=== PATIENT | female | born 1955 | race Caucasian/White ===

== ENCOUNTER 2016-11-18 11:03 | Emergency (ER) | payer MEDICARE ==
[2016-09-13 15:28] VITALS: BMI 15.6
[~2016-11-18 11:03] MED LIST: LEVOTHYROXINE50 MCG PO; LISINOPRIL-HCTZ1 TA2 PO; LUNESTA3 MG PO; METHADONE 10 MG10 MG PO; MORPHINE IMMEDI30 M1 PO; PAROXETINE HCL10 MG PO; SONATA10 MG PO; ZANAFLEX4 MG PO
[2016-11-18 11:33] LABS: BASOPHILS 0.2 % (0.0-2.0); EOSINOPHILS 1.5 % (0-7); HEMATOCRIT 40.7 % (36.0-48.0); HEMOGLOBIN 13.2 g/dL (12-16); LYMPHOCYTES 28.8 % (15-50); MCH 31.1 pg (26.0-34.0); MCHC 32.4 g/dL (31.0-37.0); MCV 95.8 fL (80.0-100.0); MEAN PLATELET VOLUME 9.9 fL (7.4-10.4); MONOCYTES 10.4 % (2-11); NEUTROPHILS 59.1 % (40-80); PLATELET COUNT 124 10x3/uL (130-400); RBC 4.25 10x6/uL (4.00-5.40); RDW 11.6 % (11.5-14.5); WBC 5.2 10x3/uL (4.8-10.8)
[2016-11-18 11:47] LABS: ALBUMIN 3.3 g/dL (3.4-5.0); ALKALINE PHOSPHATASE 76 U/L (46-116); ALT (SGPT) 27 U/L (10-68); BILIRUBIN - TOTAL 0.61 mg/dL (0.2-1.3); CALCIUM 9.5 mg/dL (8.5-10.1); CHLORIDE - SERUM 98 mmol/L (98-107); CREATININE - SERUM 0.6 mg/dL (0.6-1.3); POTASSIUM - SERUM 4.6 mmol/L (3.5-5.1); PROTEIN - SERUM 6.5 g/dL (6.4-8.2); SODIUM 141 mmol/L (136-145); UREA NITROGEN 14 mg/dL (7-18); eGFR NON AFRICAN AMERICAN > 90 mL/min (90-120)
[2016-11-18 11:53] LABS: CALC OSMOLALITY 283 mosm/kg (275-300); GLUCOSE 135 mg/dL (74-106)
[2016-11-18 11:55] LABS: CARBON DIOXIDE 45.2 mmol/L (21.0-32.0)
[2016-11-18 12:23] LABS: PRO BNP 143 pg/mL (0-125)
[2016-11-18 12:24] LABS: CREATINE KINASE 40 UL (21-215); TROPONIN-I < 0.017 ng/mL (0.000-0.060)
[2016-11-18 12:42] LABS: APPEARANCE HAZY (CLEAR); BACTERIA FEW /hpf (NONE SEEN); BILIRUBIN NEGATIVE (NEGATIVE); COLOR YELLOW (YELLOW); EPITHELIAL CELLS 0-5 /hpf (0-5); GLUCOSE NEGATIVE (NEGATIVE); KETONE NEGATIVE (NEGATIVE); LEUKOCYTE ESTERASE 2+ (NEGATIVE); MUCUS <1+ /lpf (NONE SEEN); NITRITE NEGATIVE (NEGATIVE); PROTEIN NEGATIVE (NEGATIVE); RED CELLS - URINE 0-5 /hpf (0-5)
== END 2016-11-18 13:10 | disposition home or self-care (01) ==
LOC: D.ER 11:03
PROVIDERS: Emergency Medicine
DX: R53.1 Weakness (principal)

== ENCOUNTER 2016-11-20 13:47 | Emergency (ER) | payer MEDICARE ==
[2016-09-13 15:28] VITALS: BMI 15.6
[2016-11-20 15:00] LABS: BASOPHILS 0.1 % (0.0-2.0); EOSINOPHILS 0 % (0-7); HEMATOCRIT 42.6 % (36.0-48.0); HEMOGLOBIN 14.1 g/dL (12-16); IMMATURE GRANULOCYTES 0.1 % (0-5); LYMPHOCYTES 3.9 % (15-50); MCH 31.3 pg (26.0-34.0); MCHC 33.1 g/dL (31.0-37.0); MCV 94.5 fL (80.0-100.0); MEAN PLATELET VOLUME 9.7 fL (7.4-10.4); MONOCYTES 3.9 % (2-11); PLATELET COUNT 135 10x3/uL (130-400); RBC 4.51 10x6/uL (4.00-5.40); RDW 11.6 % (11.5-14.5); WBC 8.9 10x3/uL (4.8-10.8)
[2016-11-20 15:16] LABS: ALBUMIN 3.9 g/dL (3.4-5.0); ALKALINE PHOSPHATASE 88 U/L (46-116); ALT (SGPT) 21 U/L (10-68); AMYLASE - SERUM 110 U/L (25-115); BILIRUBIN - TOTAL 0.77 mg/dL (0.2-1.3); CALC OSMOLALITY 288 mosm/kg (275-300); CALCIUM 9.8 mg/dL (8.5-10.1); CHLORIDE - SERUM 97 mmol/L (98-107); CREATININE - SERUM 0.8 mg/dL (0.6-1.3); GLUCOSE 167 mg/dL (74-106); LIPASE 348 U/L (73-393); PROTEIN - SERUM 7.8 g/dL (6.4-8.2); SODIUM 142 mmol/L (136-145); UREA NITROGEN 18 mg/dL (7-18); eGFR NON AFRICAN AMERICAN 77 mL/min (90-120)
[2016-11-20 15:19] LABS: POTASSIUM - SERUM 2.8 mmol/L (3.5-5.1)
[2016-11-20 15:32] LABS: APPEARANCE CLEAR (CLEAR); BILIRUBIN NEGATIVE (NEGATIVE); COLOR YELLOW (YELLOW); GLUCOSE NEGATIVE (NEGATIVE); KETONE NEGATIVE (NEGATIVE); LEUKOCYTE ESTERASE TRACE (NEGATIVE); NITRITE NEGATIVE (NEGATIVE); PROTEIN TRACE mg/dL (NEGATIVE); SPECIFIC GRAVITY 1.025 (1.005-1.020); UROBILINOGEN NORMAL (NORMAL)
[2016-11-20 15:33] LABS: WHITE CELLS - URINE 0-5 /hpf (0-5)
[2016-11-20 15:34] LABS: BACTERIA FEW /hpf (NONE SEEN); YEAST <1+ /hpf (NONE SEEN)
== END 2016-11-20 18:30 | disposition home or self-care (01) ==
LOC: D.ER 13:47
PROVIDERS: Emergency Medicine
DX: R11.10 Vomiting, unspecified (principal)

== ENCOUNTER → 2017-03-03 12:58 | Outpatient (CLI) | payer MEDICARE ==
[2016-09-13 15:28] VITALS: BMI 15.6
== END | disposition home or self-care (01) ==
LOC: D.RT 12:58
DX: J96.11 Chronic respiratory failure with hypoxia (principal); Z01.818 Encounter for other preprocedural examination

== ENCOUNTER 2017-03-14 11:13 | Inpatient (IN) | payer MEDICARE ==
[~2017-03-14] VITALS: Ht 152.4 cm; Wt 49.4 kg
[2017-03-14 12:59] LABS: BASOPHILS 0 % (0-2); EOSINOPHILS 0.2 % (0-7); HEMATOCRIT 38.7 % (36.0-48.0); HEMOGLOBIN 12.7 g/dL (12-16); LYMPHOCYTES 14.2 % (15-50); MCH 30.3 pg (26.0-34.0); MCHC 32.8 g/dL (31.0-37.0); MCV 92.4 fL (80.0-100.0); MEAN PLATELET VOLUME 9.7 fL (7.4-10.4); MONOCYTES 6.5 % (2-11); NEUTROPHILS 79.1 % (40-80); PLATELET COUNT 114 10x3/uL (130-400); RBC 4.19 10x6/uL (4.00-5.40); RDW 11.9 % (11.5-14.5); WBC 5.1 10x3/uL (4.8-10.8)
[2017-03-14 13:16] LABS: APTT 26.9 SECONDS (22.8-39.4); INR 0.99 (0.85-1.17); PROTIME 12.9 SECONDS (11.6-15.0)
[2017-03-14 13:30] LABS: ALBUMIN 3.6 g/dL (3.4-5.0); ALKALINE PHOSPHATASE 80 U/L (46-116); ALT (SGPT) 23 U/L (10-68); BILIRUBIN - TOTAL 0.31 mg/dL (0.2-1.3); CALCIUM 9.3 mg/dL (8.5-10.1); CHLORIDE - SERUM 100 mmol/L (98-107); CREATININE - SERUM 0.5 mg/dL (0.6-1.3); POTASSIUM - SERUM 4.1 mmol/L (3.5-5.1); PROTEIN - SERUM 7.1 g/dL (6.4-8.2); SODIUM 141 mmol/L (136-145); UREA NITROGEN 17 mg/dL (7-18); eGFR NON AFRICAN AMERICAN > 90 mL/min (90-120)
[2017-03-14 13:32] LABS: CALC OSMOLALITY 282 mosm/kg (275-300); GLUCOSE 92 mg/dL (74-106)
[2017-03-14 13:33] LABS: CARBON DIOXIDE 45.8 mmol/L (21.0-32.0)
--- NOTE | 2017-03-14 18:41 | NUR ---
PT AOX4 RESP EVEN AND NONLABORED PT C/O N/V AT THIS TIME. IV TO LEFT FOREARM PATENT AND INTACT. SRX2 BED AT LOWEST SETTING CALL LIGHT WITHIN REACH. WILL CONTINUE TO MONITOR
[2017-03-14 18:50] VITALS: BP 123/91
[2017-03-14 19:00] VITALS: BP 127/96
--- NOTE | 2017-03-14 19:59 | NUR ---
RECIEVED PT LYING IN BED, ASSESSMENT COMPLETED, C/O ABD PAIN 10/10 WITH NAUSEA, TREATED WITH PRN MORPHINE AND ZOFRAN PER DEC, VIRA WELL, SR'S UP, NC IN PLACE, ALARM ON, CL IN REACH, WILL MONITOR
--- NOTE | 2017-03-14 21:26 | NUR ---
PT UP TO RESTROOM WITH NO DISTRESS NOTED, SCHEDULED METHADONE GIVEN ALONG WITH PRN LUNESTA PER PT REQUEST FOR SLEEP AFTER PT RETURNED TO BED, DENIES FURTHER NEEDS, SR'S UP, ALARM ON, CL IN REACH
--- NOTE | 2017-03-15 01:54 | NUR ---
PRN MORPHINE AND ZOFRAN GIVEN PER DEC FOR C/O CARRANZA 07/10 WITH NAUSEA, UP TO RESTROOM, VIRA WELL, DENIES FURTHER NEEDS, SR'S UP, ALARM ON, CL IN REACH
[2017-03-15 02:04] VITALS: BP 123/91; BMI 21.3
[2017-03-15] MEDS ORDERED: REMERON30 MG PO (02:15)
[2017-03-15] MEDS ORDERED: LORAZEPAM1 MG/0.5 M SL (02:15)
[2017-03-15] MEDS ORDERED: MORPHINE SUL20 MG/ML PO (02:16)
[2017-03-15] MEDS ORDERED: GLYCOLAX527 GM PO (02:16)
[2017-03-15] MEDS ORDERED: AMBIEN10 MG PO (02:17)
[2017-03-15] MEDS ORDERED: IPRAT-ALBUT 0.5-3 ML UPD (02:17)
[2017-03-15 04:00] VITALS: BP 131/46
--- NOTE | 2017-03-15 05:58 | NUR ---
PRN MORPHINE AND ZOFRAN GIVEN FOR C/O ABD PAIN 06/09 WITH NAUSEA ALONG WITH SCHEDULED SYNTHROID, VIRA WELL, DENIES OTHER NEEDS, SR'S UP, CL IN REACH
[2017-03-15 08:30] VITALS: BP 136/101
--- NOTE | 2017-03-15 08:30 | NUR ---
SCHEDULED MEDICATIONS ADMINISTERED AT THIS TIME WITHOUT DIFFICULTY. PT C/O NAUSEA WITHOUT EMESIS. ASSESSMENT PERFORMED PER FLOWSHEET. SCD'S APPLIED TO BLE. CALL LIGHT IN REACH, BED ALARM ON AND SRX2 WITH BED IN LOWEST POSITION AND WHEELS LOCKED. WILL CONTINUE WITH PLAN OF CARE.
--- NOTE | 2017-03-15 09:59 | NUR ---
PRN MORPHINE AND ZOFRAN ADMINISTERED AT THIS TIME FOR PAIN 8/10 ABDOMINALLY AND NAUSEA. IV TO LEFT AC PATENT WITH BLOOD RETURN PRESENT. CALL LIGHT IN REACH, WILL CONTINUE WITH PLAN OF CARE.
[2017-03-15 12:18] VITALS: BP 114/86
--- NOTE | 2017-03-15 12:45 | NUR ---
PRN PHENERGAN SUPPOSITORY ADMINISTERED FOR PERSISTENT NAUSEA WITHOUT EMESIS. FATHER AT BEDSIDE. CALL LIGHT IN REACH, WILL CONTINUE WITH PLAN OF CARE.
[2017-03-15 13:53] VITALS: Ht 152.4 cm; Wt 49.4 kg
--- NOTE | 2017-03-15 14:50 | NUR ---
PRN MORPHINE AND ZOFRAN ADMINISTERED AT THIS TIME FOR PAIN AND NAUSEA AT THIS TIME. PAIN 8/10 ABDOMINALLY. COOL RAG PROVIDED TO PT FOR HER FOREHEAD. DENIES FURTHER NEEDS. CALL LIGHT IN REACH. WILL CONTINUE WITH PLAN OF CARE.
--- NOTE | 2017-03-15 15:23 | NUR ---
Patient Name: MILI VALVERDE Admission Status: ER Accout number: [id number] Admission Date: 03-15-2017 : 1955 Admission Diagnosis: Attending: ONDINA Current LOS: 1 Anticipated DC Date: 03-18-2017 Planned Disposition: Home with Home Health Primary Insurance: MEDICARE A & B Discharge Planning Comments: CM MET WITH PATIENT REGARDING D/C NEEDS AND PLANS. PATIENT STATED SHE LIVES WITH HER SPOUSE (SHERRIE) AND THERE DAUGHTER HER CHILDREN. PATIENT STATED THERE ARE 2 STEPS W/O RAILS TO ENTER HOME AND NO STAIRS INSIDE. PATIENT STATED HER PCP IS DR. COPELAND AND PHARMACY IS [facility]. PATIENT HAS [facility] THAT COMES IN 5 DAYS A WEEK FOR 3HRS A DAY. PATIENT HAS OXYGEN (1.5 LITER) NEBULIZER, PORT O2, SHOWER CHAIR, BS COMMODE, AND WALKER AT HOME. PATIENT HAS SIGNED THE LU FORM WITH [facility] IF NEEDED. CM WILL CONTINUE TO FOLLOW PATIENT WITH D/C NEEDS AND PLANS. PCP DR. DINORAH COHEN ON [facility]- [phone] SHERRIE (SPOUSE) [phone] Shipfitter: Sophie Lewis Is the patient Alert and Oriented? Yes 0 * How many steps to enter\exit or inside your home? 2 W/O RAIL 0 * PCP DR. COPELAND 0 * Pharmacy [facility] 0 * Preadmission Environment Home with Family 0 * ADLs Partial Dependent 0 * Partial ADLs (Assistance needed) Bathing Dressing Medication Management 0 * Equipment Bedside Commode Nebulizer Oxygen Shower Chair Walker 0 * Other Equipment PORTABLE O2 0 * List name and contact numbers for known caregivers / representatives who currently or will assist patient after discharge: SHERRIE (SPOUSE) [phone] 0 * Community resources currently utilized None 0 * Additional services required to return to the preadmission environment? Yes 0 * Can the patient safely return to the preadmission environment? Yes 0 * Has this patient been hospitalized within the prior 30 days at any hospital? No 0 Grand Total: 0
[2017-03-15 15:58] VITALS: BP 130/89
--- NOTE | 2017-03-15 16:30 | NUR ---
SLEEPING AT THIS TIME. RESPIRATIONS EVEN AND NON LABORED. WILL WAIT FOR PT TO WAKE UP TO ADMINISTER SCHEDULED METHADONE THIS IS THE FIRST TIME SHE HAS SLEPT ALL DAY.
--- NOTE | 2017-03-15 16:59 | NUR ---
SCHEDULED METHADONE ADMINISTERED AT THIS TIME. TAKEN WITHOUT DIFFICULTY. REQUESTING JELLO AT THIS TIME. DENIES FURTHER NEEDS. CALL LIGHT IN REACH. WILL CONTINUE WITH PLAN OF CARE.
[2017-03-15 19:00] VITALS: BP 134/89
--- NOTE | 2017-03-15 19:20 | NUR ---
ASSESSMENT COMPLETED, HOB ELEVATED, PULMACARE INFUSING TO PEG, SR'S UP, SCD'S ON, SPOUSE IN ROOM, CL IN REACH, WILL MONITOR
--- NOTE | 2017-03-15 20:51 | NUR ---
PRN ZOFRAN GIVEN FOR C/O NAUSEA ALONG WITH ROUTINE MEDS, VIRA WELL, CL IN REACH
--- NOTE | 2017-03-15 22:11 | NUR ---
PRN LUNESTA GIVEN PER REQUEST FOR SLEEP, VIRA WELL, CL IN REACH
[2017-03-16 04:00] VITALS: BP 102/77
[2017-03-16 08:14] VITALS: BP 96/67
--- NOTE | 2017-03-16 09:26 | NUR ---
SCHEDULED MEDICATIONS ADMINISTERED THIS TIME WITHOUT DIFFICULTY. PRN PHENERGAN SUPPOSITORY ADMINISTERED AT THIS TIME FOR COMPLAINTS OF NAUSEA. ASSESSMENT PERFORMED PER FLOWSHEET. PT IS SELF AMBULATORY AND CALL LIGHT IN REACH. WILL CONTINUE WITH PLAN OF CARE.
--- NOTE | 2017-03-16 11:28 | NUR ---
PRN MORPHINE AND ZOFRAN ADMINISTERED AT THIS TIME. PAIN 8/10 AND PT COMPLAINS OF NAUSEA WITHOUT VOMITING. PT DENIES FURTHER NEEDS AT THIS TIME. IV TO LEFT AC PATENT WITH NO S/S OF INFILTRATION.
[2017-03-16 11:50] VITALS: BP 116/80
--- NOTE | 2017-03-16 13:14 | NUR ---
UP TO CHAIR AT THIS TIME. IV TO LEFT AC D/C WITH CATH TIP INTACT.
--- NOTE | 2017-03-16 16:20 | NUR ---
DISCHARGE PAPERWORK REVIEWED AT THIS TIME. SON AT BEDSIDE TO TRANSPORT PT HOME.
== END 2017-03-16 16:20 | disposition home health service (06) | DRG 206 ==
LOC: D.ER 11:13 → OBSVTIME 17:53 → D.MS 17:53
PROVIDERS: Physician Assistant; ADMIT Family Medicine
DX: R09.02 Hypoxemia (principal); R51 Headache; K44.9 Diaphragmatic hernia without obstruction or gangrene; M41.9 Scoliosis, unspecified; F32.9 Major depressive disorder, single episode, unspecified; F41.9 Anxiety disorder, unspecified

== ENCOUNTER 2017-03-22 01:40 | Emergency (ER) | payer MEDICARE ==
[2017-03-15 13:53] VITALS: BMI 21.2
[~2017-03-22 01:40] MED LIST changes: +AMBIEN10 MG PO; +GLYCOLAX527 GM PO; +IPRAT-ALBUT 0.5-3 ML UPD; +LORAZEPAM1 MG/0.5 M SL; +MORPHINE SUL20 MG/ML PO; +REMERON30 MG PO
[2017-03-22 03:07] LABS: BASOPHILS 0.2 % (0-2); EOSINOPHILS 0.4 % (0-7); HEMATOCRIT 39.6 % (36.0-48.0); HEMOGLOBIN 13.3 g/dL (12-16); IMMATURE GRANULOCYTES 0.1 % (0-5); LYMPHOCYTES 11.7 % (15-50); MCH 30.1 pg (26.0-34.0); MCHC 33.6 g/dL (31.0-37.0); MCV 89.6 fL (80.0-100.0); MEAN PLATELET VOLUME 9.9 fL (7.4-10.4); NEUTROPHILS 81.6 % (40-80); RBC 4.42 10x6/uL (4.00-5.40); RDW 11.8 % (11.5-14.5); WBC 8.3 10x3/uL (4.8-10.8)
[2017-03-22 03:12] LABS: PLATELET COUNT 137 10x3/uL (130-400)
[2017-03-22 03:22] LABS: CALCIUM 9.9 mg/dL (8.5-10.1); CHLORIDE - SERUM 99 mmol/L (98-107); CREATININE - SERUM 0.6 mg/dL (0.6-1.3); POTASSIUM - SERUM 3.3 mmol/L (3.5-5.1); SODIUM 142 mmol/L (136-145); UREA NITROGEN 19 mg/dL (7-18); eGFR NON AFRICAN AMERICAN > 90 mL/min (90-120)
[2017-03-22 03:26] LABS: CALC OSMOLALITY 290 mosm/kg (275-300); GLUCOSE 210 mg/dL (74-106)
[2017-03-22 03:27] LABS: CARBON DIOXIDE 42.2 mmol/L (21.0-32.0)
[2017-03-22 08:59] LABS: AMORPHOUS SEDIMENT >1+ /lpf (NONE SEEN); APPEARANCE HAZY (CLEAR); BACTERIA FEW /hpf (NONE SEEN); BILIRUBIN NEGATIVE (NEGATIVE); COLOR YELLOW (YELLOW); EPITHELIAL CELLS 0-5 /hpf (0-5); GLUCOSE 50 mg/dL (NEGATIVE); GRANULAR CAST RARE /lpf (NONE SEEN); KETONE SMALL mg/dL (NEGATIVE); LEUKOCYTE ESTERASE NEGATIVE (NEGATIVE); MUCUS <1+ /lpf (NONE SEEN); NITRITE NEGATIVE (NEGATIVE); PROTEIN TRACE mg/dL (NEGATIVE); SPECIFIC GRAVITY 1.015 (1.005-1.020); UROBILINOGEN NORMAL (NORMAL); WHITE CELLS - URINE RARE /hpf (0-5)
== END 2017-03-22 11:10 | disposition home or self-care (01) ==
LOC: D.ER 01:40
PROVIDERS: Family Medicine
DX: R11.10 Vomiting, unspecified (principal); R10.9 Unspecified abdominal pain; I10 Essential (primary) hypertension

== ENCOUNTER 2017-08-25 15:40 | Inpatient (IN) | payer MEDICARE ==
[2017-08-25] MEDS ORDERED: PHENERGAN12.5 MG RC (17:10)
--- NOTE | 2017-08-25 18:45 | NUR ---
PATIENT DURON STARTED AT THIS TIME AND SPECIMAN SENT TO LAB ORDERED. PATIENT TOLERATED WITH SMALL AMOUNT OF PAIN. IV STARTED IN LEFT FA. 20 G. X 1 STICK. NO COMPLAINTS AT THIS TIME. CALL LIGHT WITHIN REACH.
--- NOTE | 2017-08-25 19:00 | NUR ---
REPORT RECEIVED AND CARE OF PT ASSUMED. PT LYING IN SEMI KEYES'S POSITION WATCHING TV. IV IN LEFT FA PATENT WITH NS INFUSING AT 100 ML / HR. DURON CATHETER DRAINING TO GRAVITY WITH YELLOW URINE IN COLLECTION BAG. WILL MONITOR FOR NEEDS.
[2017-08-25 20:00] VITALS: BP 138/97
[2017-08-25 20:12] VITALS: BP 140/96; BMI 19.5
[2017-08-25 20:36] LABS: APPEARANCE HAZY (CLEAR); BILIRUBIN NEGATIVE (NEGATIVE); COLOR DK YELLOW (YELLOW); GLUCOSE NEGATIVE (NEGATIVE); KETONE LARGE mg/dL (NEGATIVE); NITRITE NEGATIVE (NEGATIVE); PROTEIN TRACE mg/dL (NEGATIVE); UROBILINOGEN NORMAL (NORMAL)
[2017-08-25 20:40] LABS: BACTERIA FEW /hpf (NONE SEEN); RED CELLS - URINE 0-5 /hpf (0-5); WHITE CELLS - URINE 0-5 /hpf (0-5)
--- NOTE | 2017-08-25 21:07 | NUR ---
HS MEDICATIONS GIVEN TO INCLUDE LUNESTA AND MORPHINE PER PRN ORDER, PER PT REQUEST FOR PAIN AND SLEEP. WILL CONTINUE TO MONITOR FOR NEEDS.
[2017-08-26 04:00] VITALS: BP 113/84
[2017-08-26 06:16] LABS: BASOPHILS 0.1 % (0-2); EOSINOPHILS 0 % (0-7); HEMATOCRIT 40.3 % (36.0-48.0); HEMOGLOBIN 12.7 g/dL (12-16); IMMATURE GRANULOCYTES 0.2 % (0-5); MCHC 31.5 g/dL (31.0-37.0); MEAN PLATELET VOLUME 9.8 fL (7.4-10.4); MONOCYTES 7.3 % (2-11); NEUTROPHILS 87.4 % (40-80); RBC 4.24 10x6/uL (4.00-5.40); WBC 9.2 10x3/uL (4.8-10.8)
[2017-08-26 06:21] LABS: PLATELET COUNT 171 10x3/uL (130-400)
[2017-08-26 06:47] LABS: ALBUMIN 3.3 g/dL (3.4-5.0); ALKALINE PHOSPHATASE 65 U/L (46-116); ALT (SGPT) 24 U/L (10-68); BILIRUBIN - TOTAL 0.71 mg/dL (0.2-1.3); CALCIUM 8.4 mg/dL (8.5-10.1); CHLORIDE - SERUM 100 mmol/L (98-107); CREATININE - SERUM 0.5 mg/dL (0.6-1.3); POTASSIUM - SERUM 3.2 mmol/L (3.5-5.1); PROTEIN - SERUM 6.9 g/dL (6.4-8.2); SODIUM 144 mmol/L (136-145); UREA NITROGEN 36 mg/dL (7-18); eGFR NON AFRICAN AMERICAN > 90 mL/min (90-120)
[2017-08-26 06:59] LABS: CALC OSMOLALITY 296 mosm/kg (275-300); GLUCOSE 142 mg/dL (74-106)
--- NOTE | 2017-08-26 07:00 | NUR ---
REPORT RECIEVED ASSUMED CARE. PATIENT IN BED WITH IV INTACT. NO COMPLAINTS AT THIS TIME. CALL LIGHT WITHIN REACH.
[2017-08-26 07:02] LABS: CARBON DIOXIDE 42.8 mmol/L (21.0-32.0)
[2017-08-26 08:38] VITALS: BP 123/85
[2017-08-26 12:14] VITALS: BMI 19.5
[2017-08-26 13:01] VITALS: BP 112/75
--- NOTE | 2017-08-26 14:26 | NUR ---
SCD'S ON BILATERAL LE
--- NOTE | 2017-08-26 15:27 | NUR ---
PT REFUSED TX DUE TO NAUSEA
[2017-08-26 16:18] VITALS: BP 123/71
--- NOTE | 2017-08-26 18:45 | NUR ---
PATIENT IN BED WITH IV INTACT. ATE HALF A SHERBERT AND SOME JELLO. ZOFRAN GIVEN FOR NAUSEA. NO VOMITTING TODAY. DID HAVE 1 LG BM. DURON INTACT. FAMILY AT BEDSIDE. CALL LIGHT WITHIN REACH.
--- NOTE | 2017-08-26 19:15 | NUR ---
RECEIVED CARE FROM DAY NURSE. PT LYING IN BED ON SIDE. REPORTS WANTING DURON OUT. INSTRUCTED NEED TO HAVE IN PLACE AT THIS TIME. NO OTHER NEEDS VOICED.
[2017-08-26 20:00] VITALS: BP 107/80
--- NOTE | 2017-08-26 21:06 | NUR ---
REPORTS SOB. REFUSES UPDRAFT SAY IT MAKES HER NOT ABLE TO BREATH. O2 95% ON 4L O2 VIA NC. BP 107/80. BREATH SOUNDS CLEAR. REPOSITIONED IN BED AND REPORTS FEELING SOME BETTER. WILL CONTINUE TO MONITOR AT THIS TIME.
--- NOTE | 2017-08-26 21:07 | NUR ---
HAD RESPIRATORY LOOK AT PT. REPORTS NORMAL FINDINGS.
[2017-08-27] VITALS (46 sets, daily range): BP systolic 52–152; BP diastolic 42–117
--- NOTE | 2017-08-27 00:47 | NUR ---
PT LYING ON BED IN LOW FOWLERS POSITION. MOUTH BREATHING. NO DISTRESS NOTED. CALL LIGTH AT SIDE. NAHED ALARM ARMED. DURON TO GRAVITY DRAINING DARK URINE.
[2017-08-27 05:22] LABS: BASOPHILS 0.1 % (0-2); EOSINOPHILS 0 % (0-7); HEMOGLOBIN 11.3 g/dL (12-16); IMMATURE GRANULOCYTES 0.2 % (0-5); MCHC 30.5 g/dL (31.0-37.0); MEAN PLATELET VOLUME 9.6 fL (7.4-10.4); MONOCYTES 9.2 % (2-11); NEUTROPHILS 80.5 % (40-80); PLATELET COUNT 150 10x3/uL (130-400); RBC 3.77 10x6/uL (4.00-5.40); RDW 12.1 % (11.5-14.5); WBC 8.8 10x3/uL (4.8-10.8)
[2017-08-27 05:23] LABS: MCV 98.1 fL (80.0-100.0)
[2017-08-27 05:36] LABS: ALKALINE PHOSPHATASE 50 U/L (46-116); ALT (SGPT) 21 U/L (10-68); CALC OSMOLALITY 297 mosm/kg (275-300); CARBON DIOXIDE 38.6 mmol/L (21.0-32.0); CHLORIDE - SERUM 105 mmol/L (98-107); CREATININE - SERUM 0.4 mg/dL (0.6-1.3); GLUCOSE 142 mg/dL (74-106); POTASSIUM - SERUM 3.4 mmol/L (3.5-5.1); SODIUM 145 mmol/L (136-145); UREA NITROGEN 32 mg/dL (7-18); eGFR NON AFRICAN AMERICAN > 90 mL/min (90-120)
--- NOTE | 2017-08-27 07:20 | NUR ---
CODE OLIVER CALLED DUE TO PT BEING FOUND PULSELESS. PLEASE REFER TO CODE BLUE RECORD SHEET. PT TRANSFERED TO ICU.
--- NOTE | 2017-08-27 07:55 | NUR ---
SPOKE WITH Merrill VALVERDE ABOUT WHAT HAPPENED AND PATIENT'S CONDITION. STATED "IT WILL BE A WHILE BEFORE I CAN JESSIE IT UP THERE BUT THANKS FOR CALLING."
[2017-08-27 09:04] LABS: BASOPHILS 0.1 % (0-2); EOSINOPHILS 0 % (0-7); HEMATOCRIT 31.8 % (36.0-48.0); HEMOGLOBIN 9.8 g/dL (12-16); IMMATURE GRANULOCYTES 0.8 % (0-5); LYMPHOCYTES 3.1 % (15-50); MCH 29.8 pg (26.0-34.0); MCHC 30.8 g/dL (31.0-37.0); MCV 96.7 fL (80.0-100.0); MEAN PLATELET VOLUME 9.7 fL (7.4-10.4); MONOCYTES 1.7 % (2-11); NEUTROPHILS 94.3 % (40-80); RBC 3.29 10x6/uL (4.00-5.40); RDW 12.1 % (11.5-14.5)
[2017-08-27 09:10] LABS: PLATELET COUNT 115 10x3/uL (130-400); WBC 11.8 10x3/uL (4.8-10.8)
[2017-08-27 09:18] LABS: ALBUMIN 2.5 g/dL (3.4-5.0); ALKALINE PHOSPHATASE 60 U/L (46-116); BILIRUBIN - TOTAL 0.64 mg/dL (0.2-1.3); CALC OSMOLALITY 307 mosm/kg (275-300); CALCIUM 7.9 mg/dL (8.5-10.1); CARBON DIOXIDE 31.7 mmol/L (21.0-32.0); CHLORIDE - SERUM 110 mmol/L (98-107); GLUCOSE 159 mg/dL (74-106); POTASSIUM - SERUM 3.3 mmol/L (3.5-5.1); PROTEIN - SERUM 5.1 g/dL (6.4-8.2); SODIUM 149 mmol/L (136-145); UREA NITROGEN 38 mg/dL (7-18)
[2017-08-27 09:19] LABS: CREATININE - SERUM 0.6 mg/dL (0.6-1.3); eGFR NON AFRICAN AMERICAN > 90 mL/min (90-120)
[2017-08-27 09:20] LABS: ALT (SGPT) 2869 U/L (10-68)
[2017-08-27 13:48] LABS: BASOPHILS 0 % (0-2); EOSINOPHILS 0 % (0-7); HEMATOCRIT 29.8 % (36.0-48.0); HEMOGLOBIN 9.3 g/dL (12-16); IMMATURE GRANULOCYTES 0.4 % (0-5); LYMPHOCYTES 4.8 % (15-50); MCH 30.5 pg (26.0-34.0); MCHC 31.2 g/dL (31.0-37.0); MCV 97.7 fL (80.0-100.0); MEAN PLATELET VOLUME 9.8 fL (7.4-10.4); NEUTROPHILS 85.8 % (40-80); PLATELET COUNT 100 10x3/uL (130-400); RBC 3.05 10x6/uL (4.00-5.40); RDW 11.9 % (11.5-14.5); WBC 12.4 10x3/uL (4.8-10.8)
[2017-08-27 17:27] LABS: CALC OSMOLALITY 308 mosm/kg (275-300); CALCIUM 7.2 mg/dL (8.5-10.1); CARBON DIOXIDE 26.5 mmol/L (21.0-32.0); CHLORIDE - SERUM 112 mmol/L (98-107); CREATININE - SERUM 0.7 mg/dL (0.6-1.3); GLUCOSE 102 mg/dL (74-106); SODIUM 150 mmol/L (136-145); UREA NITROGEN 43 mg/dL (7-18); eGFR NON AFRICAN AMERICAN 90 mL/min (90-120)
[2017-08-27 17:28] LABS: POTASSIUM - SERUM 2.3 mmol/L (3.5-5.1)
[2017-08-27 17:45] LABS: BASOPHILS 0.1 % (0-2); EOSINOPHILS 0 % (0-7); HEMATOCRIT 34.1 % (36.0-48.0); HEMOGLOBIN 10.8 g/dL (12-16); IMMATURE GRANULOCYTES 0.4 % (0-5); LYMPHOCYTES 6.8 % (15-50); MCH 30.3 pg (26.0-34.0); MCHC 31.7 g/dL (31.0-37.0); MONOCYTES 6.4 % (2-11); NEUTROPHILS 86.3 % (40-80); RBC 3.57 10x6/uL (4.00-5.40); RDW 11.9 % (11.5-14.5); WBC 10.6 10x3/uL (4.8-10.8)
[2017-08-27 17:46] LABS: MCV 95.5 fL (80.0-100.0); PLATELET COUNT 123 10x3/uL (130-400)
--- NOTE | 2017-08-27 19:00 | NUR ---
REPORT RECEIVED AND ASSESSMENT COMPLETED. PT IS POST CODE FROM FLOOR. DR VIZCARRA HAS BEEN CONSULTED. PT IS UNRESPONSIVE AT THIS TIME. DURING DAY SHIFT PT HAD SOME SEIZURE LIKE ACTIVITY. WILL MONITOR NEURO STATUS CLOSELY THROUGHOUT SHIFT
--- NOTE | 2017-08-27 19:28 | NUR ---
07-RECIEVED FROM 2214-ACCOMPANIED BY HUEY TEAM-TRANSFERED TO 2304-ET TUBE REMAINS IN SITU-PLACED TO VENT-PER RT-SR ON MONITOR-ATTEMPTED VIA OGT AND NASAL FOR NGT-RESISTANCE ABA-[id number]-IPXN CXR DONE-DR DU NOTIFIED OF CURRENT EVENTS-NOTED PUPILS UNEQUAL-ORDER FOR C OF HEAD-N/S SET AT 100ML/H-NONE RESPONSIVE A THIS TIME-SON CALLED FLOOR STATUS REPORT GIVEN- 00-PT TO CT SCAN WITH RT AND RN - 829-RETURNED TO ROOM-CONTINUES NONRESPONSIVE-UNEVEN PUPILS-NARCAN 0.4MG IVP SLOW STARTED-DR DU IN UNIT-AT [facility]-REPORTED POSSIBLE HISTORY OF SEIZURES/ANTTISEIZURE MEDS-HELD ROMAZACON-NO RESPONSE FROM NARCAN- 08-DR MCCANN NOTIFIED OF CONSULT AND AT BEDSIDE- ET TUBE ADJUSTED -SPOKE [facility] RADIOLOGIST REGARDING NOTABLE HIATAL HERNIA AND POSIIONING OF STOMACH IN CHEST- MARKED LIQUID DIARRHEA-STOOL SENT FOR CDT-OCCULT 929-DIARRHEA REPEATED RECTAL TUBE PLACED-BUTT BALM USED FOR SKIN PROTECTTION 1000-DR YU CONSULTED AND PG'D 1030-RETURNED CALL 1130-REPOSITIONED TO L SIDE-EYES DEVIATED TO R AND UPPER CORNERS-NO RESPONSE TO TOUC SCLERA 1145-DR VIZCARRA NOTIFIED-OF CONSULT-AND SPOKE TO ON TELEPHONE-CURRENT STATUS INFORMED OF TWITCING - 1500-REPOSITIONED TO R SIDE-EYES DEVIATED TO L UPPER CORNER 1700-TEMP 102.2-DR TOWNSEND NOTIFIED-ORDER RECIVED AND NOTED-SPUTUM AND URINE BLOOD CULTURE REPEATED 173-DR MCCANN MADE AWARE OF CURRENT BMP 1744-ORDERS RECIEVED VIA COMPUTER-ENTERPRISE ENGINEER NOTIFIED-TYLENOL SUPP GIVEN
--- NOTE | 2017-08-27 21:00 | NUR ---
PT K+ LEVEL 2.4. DR MCCANN NOTIFIED. NEW ORDERS RECEIVED. WILL ADMINISTER ELECTROLYTE REPLACEMENT ORDERED.
--- NOTE | 2017-08-27 23:00 | NUR ---
REASSESSMENT COMPLETED SEE FLOWSHEET FOR FULL DETAILS. NO OTHER CHANGES AT THIS TIME. WILL CONTINUE TO MONITOR
[2017-08-28] VITALS (24 sets, daily range): BP systolic 115–166; BP diastolic 89–124
--- NOTE | 2017-08-28 01:00 | NUR ---
PT PUPILS NO LONGER FIXED. STILL GAZES UPWARD TO THE LEFT. RESPONSIVE TO PHYSICAL STIMULI. WILL CONTINUE TO MONITOR
--- NOTE | 2017-08-28 02:26 | NUR ---
merrem unavailable at this time. awaiting housecalls nurse for override. will administer as soonn as possible.
--- NOTE | 2017-08-28 03:00 | NUR ---
REASSESSMENT COMPLETED. SEE FLOWSHEET FOR FULL DETAILS. WILL CONTINUE TO MONITOR THROUGH OUT SHIFT. RADIOLOGY AT BEDSIDE FOR X RAY AT THIS TIME.
[2017-08-28 04:02] LABS: BASOPHILS 0 % (0-2); EOSINOPHILS 0 % (0-7); HEMATOCRIT 31.7 % (36.0-48.0); HEMOGLOBIN 10.2 g/dL (12-16); IMMATURE GRANULOCYTES 0.2 % (0-5); LYMPHOCYTES 9.9 % (15-50); MCH 30.4 pg (26.0-34.0); MCHC 32.2 g/dL (31.0-37.0); MCV 94.6 fL (80.0-100.0); MEAN PLATELET VOLUME 9.3 fL (7.4-10.4); MONOCYTES 8.1 % (2-11); NEUTROPHILS 81.8 % (40-80); PLATELET COUNT 108 10x3/uL (130-400); RBC 3.35 10x6/uL (4.00-5.40); WBC 8.2 10x3/uL (4.8-10.8)
[2017-08-28 04:11] LABS: INR 1.29 (0.85-1.17)
[2017-08-28 04:26] LABS: D-DIMER-QUANTITATIVE 19.56 ug/mLFEU (0.20-0.54)
[2017-08-28 04:31] LABS: ALBUMIN 2.8 g/dL (3.4-5.0); CALCIUM 8.4 mg/dL (8.5-10.1); MAGNESIUM - SERUM 1.6 mg/dL (1.8-2.4); PROTEIN - SERUM 5.7 g/dL (6.4-8.2)
[2017-08-28 04:32] LABS: CREATININE - SERUM 1.3 mg/dL (0.6-1.3)
[2017-08-28 04:33] LABS: ANION GAP 10.7 mmol/L (8-16); PHOSPHOROUS 0.7 mg/dL (2.5-4.9); POTASSIUM - SERUM 2.7 mmol/L (3.5-5.1); TROPONIN-I 0.071 ng/mL (0.000-0.060)
--- NOTE | 2017-08-28 05:00 | NUR ---
PT REPOSITIONED. PT WILL WITHDRAWL, AND FLEX WITH PHYSICAL STIMULI. PUPILS NO LONGER FIXED. PT WAS ABLE TO TRACK MOVEMENT OF MY FINGER WITH EYES. WILL REPEAT TEST TO FURTHER ASSESS.
[2017-08-28 15:28] LABS: ANION GAP 15.5 mmol/L (8-16); CALCIUM 7.8 mg/dL (8.5-10.1); CARBON DIOXIDE 25.5 mmol/L (21.0-32.0); CREATININE - SERUM 1.3 mg/dL (0.6-1.3)
[2017-08-28 15:31] LABS: PHOSPHOROUS 2.6 mg/dL (2.5-4.9)
--- NOTE | 2017-08-28 18:42 | NUR ---
0715-DR VIZCARRA AT [facility]-NOTED INCREASED PT REPONSIVE TO TACTILE AND SPONTANEOUS EYE MOVEMENT-RESTRAINTS SECURED -PT ATTEMPTIN TO REACH ET TUBE-PUPIL EQUAL AND RESPONSIVE-CURRENTLY NOTED MOVE WITH R ARM ONLY 0830-SON CALLED UNIT INFORMED OF NUEROLOGIST CONSULT NOTE AND PLAN FOR REPEAT CT OF HEAD THIS AFTERNOOON-AND PENDING EEG READING-INFORMED OF INCREASED RESPONSIVENESS- 1030-ELECTOLYTE PROTOCOL FOLLOWED FOR PHOS -NOTED NEW ORDER DR MCCANN WITH K PHOS--1 HOUR LEFT FOR COMPLETION OF [id number]-[id number] BMP PROIOR TO CHANGING IV FLUID 1300-LAB DRAWN ORDERED-KPHOS RIDER COMPLETED AT 1200PM 1500-KPHOS/NS AT 100ML/H STARTED-PT TO CT SCAN ON [place]-AND TELEMETRY - 1530-RETURNED TO UNIT COMPLETE SKIN CARE GIVEN- NOTED TEMP 101.7-TYLEONL SUPP GIVEN 1600-FATHER AT [facility]-QUESTIONS ANSWERED 1700-DR VIZCARRA AWARE EEG NOT COMPLETED-NON FUNCTIONING AT THIS TIME 1800-PT TURNED TO R SIDE
--- NOTE | 2017-08-28 19:25 | NUR ---
PT IN BED WITH EYES CLOSED AND CHEST RISING WITH ASSIST OF VENT. RATE 12, TOTAL VOLUME 500, O2 40%, PEEP 5. RECEIVING KPHOS AT 100MLS/HR VIA RIGHT FOREARM PERIPHERAL WITH DRESSING INTACT AND WITOUT S/S OF INFILTRATION. LEFT ARM FLACCID. NO S/S OF DISTRESS NOTED. WILL CONTINUE TO OBSERVE.
--- NOTE | 2017-08-28 21:00 | NUR ---
PT IN BED CONTINUES WITH VENT. PT WITH MOVEMENT NOTED TO RIGHT UPPER EXREMETY. NO CONCERNS NOTED AT THIS TIME. WILL CONTINUE TO OBSERVE.
--- NOTE | 2017-08-28 23:00 | NUR ---
PT IN BED CONTINUES ON VENT. NO S/S OF DISTRESS. BILATERAL WRIST RESTRAINTS RELEASED AND SKIN ASSESSED AND RERESTRAINED NO ABNORMAL FINDINGS NOTED. WILL CONTINUE TO OBSERVE.
[2017-08-29] VITALS (24 sets, daily range): BP systolic 124–167; BP diastolic 84–130
--- NOTE | 2017-08-29 01:01 | NUR ---
PT REPOSTIONED FOR COMFORT, ORAL CARE PROVIDED,
--- NOTE | 2017-08-29 03:02 | NUR ---
PT CONTINUES VENT. NO S/S OF DISTRESS. PT RESTLESS NOTED AT TIMES. NO CONCERNS NOTED AT THIS TIME. WILL CONTINUE TO OBSERVE.
[2017-08-29 03:32] LABS: BASOPHILS 0.1 % (0-2); EOSINOPHILS 0.1 % (0-7); HEMATOCRIT 26.5 % (36.0-48.0); HEMOGLOBIN 8.9 g/dL (12-16); IMMATURE GRANULOCYTES 0.3 % (0-5); LYMPHOCYTES 8.4 % (15-50); MCHC 33.6 g/dL (31.0-37.0); MEAN PLATELET VOLUME 9.9 fL (7.4-10.4); NEUTROPHILS 85.1 % (40-80); PLATELET COUNT 112 10x3/uL (130-400); RBC 2.97 10x6/uL (4.00-5.40); RDW 12.8 % (11.5-14.5); WBC 8.8 10x3/uL (4.8-10.8)
[2017-08-29 03:34] LABS: MCV 89.2 fL (80.0-100.0)
[2017-08-29 03:54] LABS: ALBUMIN 2.7 g/dL (3.4-5.0); ANION GAP 14.8 mmol/L (8-16); BILIRUBIN - TOTAL 1.06 mg/dL (0.2-1.3); CALCIUM 7.4 mg/dL (8.5-10.1); CARBON DIOXIDE 26.2 mmol/L (21.0-32.0); CREATININE - SERUM 1.3 mg/dL (0.6-1.3); MAGNESIUM - SERUM 1.3 mg/dL (1.8-2.4); PROTEIN - SERUM 5.5 g/dL (6.4-8.2); VANCOMYCIN - RANDOM 17.1 ug/mL (10.0-20.0)
[2017-08-29 03:59] LABS: PHOSPHOROUS 5.1 mg/dL (2.5-4.9)
--- NOTE | 2017-08-29 05:20 | NUR ---
PT CONTINUES VENT VIA ENTUBATION. PT RESTLESS AT TIMES. POTASSIUM 3.0 WITH 1OMEQ OF POTASSIUM STARTED PER PROTOCOL. PT TOLERATING WELL. WILL CONTINUE TO OBSERVE.
--- NOTE | 2017-08-29 07:00 | NUR ---
REPORT RECEIVED FROM OFF GOING NURSE. SEE FLOW SHEET FOR ASSESSMENT. VENT SETING ARE AC RATE 12, TITAL VOL. 500, 40%, PEEP 5, 19 AT LIP. PT NO ON SEDATION. PT WILL NOT FOLLOW COMMADS BUT WILL FOLLOW WITH YOU WITH HER EYES INTMITTEDLY. RESONDS TO PAIN. CALL LIGHT IN REACH. WILL CONT POC
--- NOTE | 2017-08-29 09:00 | NUR ---
RT ADVANCED ETT TUBE TO 23CM TO LEFT LIP.
--- NOTE | 2017-08-29 10:56 | NUR ---
Nutrition follow-up/consult: Recieved order from Dr. Luna to start TPN. Chart reviewed and order written Pt remains intubated, sedated. Wt: 106# RDN following.
--- NOTE | 2017-08-29 11:16 | NUR ---
(GENE) CALLED FOR VERBAL CONSENT FOR PICC LINE. VERIFIED WITH ANOTHER RN. VASCULAR NURSE AT BED SIDE.
--- NOTE | 2017-08-29 12:02 | NUR ---
PICC LINE TO LEFT ARM. DRESSING C/D/I
--- NOTE | 2017-08-29 14:00 | NUR ---
CXR REVIEWED R/T PICC LINE. VASCULAR NURSE AT BED SIDE.
--- NOTE | 2017-08-29 15:22 | NUR ---
SPOKE WITH DR YAO. RECEIVED APPROVAL TO USE PICC LINE.
--- NOTE | 2017-08-29 15:26 | NUR ---
SPOKE WITH DR YAO. HE STATED HE REVIED THE CXR AND THAT THE PICC LINE IS OK TO USE. PICC LINE ASPIRATES BLOOD AND FLUSHES EASLY.
--- NOTE | 2017-08-29 15:37 | NUR ---
* Is the patient Alert and Oriented? No 0 * How many steps to enter\exit or inside your home? 2 0 * PCP Dr. Copeland 0 * Pharmacy [facility] on [address] 0 * Preadmission Environment Home with Family 0 * ADLs Partial Dependent 0 * Partial ADLs (Assistance needed) Ambulation Bathing Dressing Medication Management Toileting Transfers 0 * Equipment Hospital Bed Nebulizer Oxygen Wheelchair 0 * List name and contact numbers for known caregivers / representatives who currently or will assist patient after discharge: Spouse - Alireza [phone] 0 * Additional services required to return to the preadmission environment? Yes 0 * Can the patient safely return to the preadmission environment? Yes 0 * Has this patient been hospitalized within the prior 30 days at any hospital? No Patient Name: MILI VALVERDE Admission Status: Elective Accout number: [id number] Admission Date: 08-25-2017 : 1955 Admission Diagnosis: Attending: EMMA COPELAND Current LOS: 4 Primary Insurance: MEDICARE A & B Discharge Planning Comments: Patient sedated, on vent. CM spoke with spouse, Alireza, via telephone. Alireza reports patient lives at home with him. He reports she requires assistance with all ADL's & IADL's but is able to feed herself. He states she has home O2, nebulize, WC, & hospital bed. He states she had home health services with [facility] until about 2 weeks ago. At ks, he is agreeable to home health services, but does not want to use [facility]. He states he wants to research agencies before making a decision. He states he will not be visiting very often due to having arthritis and difficulty walking long distances - explained he can stop at information desk and staff can assist him to her room. CM will follow & assist as needed. Threat Analyst: Marybeth Stevenson
--- NOTE | 2017-08-29 17:00 | NUR ---
PT RESTING WITH NO S/SX OF DISTRESS/DISCOMFORT NOTED. REPOSITIONED FOR COMFORT
--- NOTE | 2017-08-29 18:43 | NUR ---
2 PIV'S REMOVED FROM PT'S RIGHT ARM. CATHETER TIP INTACT. DRESSING APPLIED.
--- NOTE | 2017-08-29 18:44 | NUR ---
REPORT GIVEN TO OFF GOING NURSE. PT REMAINS ON VENT AND UNRESPONSIVE. AT BASE LINE. CALL LIGHT IN REACH. WILL CONT POC
--- NOTE | 2017-08-29 19:15 | NUR ---
PT CONTINUES VENT AT TOTAL VOLUME 500, PEEP 5, RATE 12, 02 40%. NEW PICC TO LEFT UPPER ARM WITH TPN RUNNING AT 40ML/HR. PT TOLERATING WELL. NO S/S OF DISTRESS NOTED. WILL CONTINUE TO OBSERVE.
--- NOTE | 2017-08-29 21:00 | NUR ---
PT IN BED CONTINUING WITH VENT WITHOUT S/S OF DISTRESS NOTED. PT REPOSITIONED ON LEFT SIDE. TOLERATED WELL. NO CONCERNS NOTED AT THIS TIME. WILL CONTINUE TO OBSERVE.
--- NOTE | 2017-08-29 23:00 | NUR ---
PT CONTINUES VENT WITHOUT S/S OF DISTRESS NOTED. RESTRAINTS PRESENT AND RELEASED EVERY 2 HOURS. NO CONCERNS NOTED AT THIS TIME. WILL CONTINUE TO OBSERVE.
[2017-08-30] VITALS (26 sets, daily range): BP systolic 92–147; BP diastolic 70–109
--- NOTE | 2017-08-30 01:00 | NUR ---
PT IN BED WITH EYES OPEN. CONTINUES ON VENT. NO S/S OF DISTRESS NOTED. NO CONCERNS NOTED. WILL CONTINUE TO OBSERVE.
--- NOTE | 2017-08-30 03:00 | NUR ---
PT CONTINUES VENT WITH NO S/S OF DISTRESS. ORAL CARE PROVIDED. RECTAL CATHETER LEAKING WITH PT CLEANED AND LINENS CHANGED. NO OTHER CONCERNS NOTED. WILL CONTINUE TO OBSERVE.
[2017-08-30 04:14] LABS: BASOPHILS 0 % (0-2); EOSINOPHILS 1.8 % (0-7); HEMATOCRIT 25.6 % (36.0-48.0); HEMOGLOBIN 8.3 g/dL (12-16); IMMATURE GRANULOCYTES 0.4 % (0-5); LYMPHOCYTES 10.1 % (15-50); MCHC 32.4 g/dL (31.0-37.0); MEAN PLATELET VOLUME 10.2 fL (7.4-10.4); MONOCYTES 8.1 % (2-11); NEUTROPHILS 79.6 % (40-80); PLATELET COUNT 104 10x3/uL (130-400); RBC 2.77 10x6/uL (4.00-5.40); RDW 13.1 % (11.5-14.5); WBC 7.6 10x3/uL (4.8-10.8)
[2017-08-30 04:27] LABS: ALBUMIN 2.6 g/dL (3.4-5.0); BILIRUBIN - TOTAL 0.9 mg/dL (0.2-1.3); CALCIUM 7.6 mg/dL (8.5-10.1); CARBON DIOXIDE 24.9 mmol/L (21.0-32.0); MAGNESIUM - SERUM 1.6 mg/dL (1.8-2.4); PHOSPHOROUS 2.6 mg/dL (2.5-4.9); PROTEIN - SERUM 5.3 g/dL (6.4-8.2)
[2017-08-30 04:28] LABS: POTASSIUM - SERUM 2.9 mmol/L (3.5-5.1)
[2017-08-30 04:46] LABS: MCV 92.4 fL (80.0-100.0)
--- NOTE | 2017-08-30 07:00 | NUR ---
REPORT RECEIVED FROM OFF GOING NURSE. SEE FLOW SHEET FOR ASSESSMENT. PT REMAINS ON VENILATOR. AC 12 TITAL VOL 500 FIO2 30% PEEP 5 23 AT THE LIP. PT WILL FOLLOW VOICE WITH EYES. WHENEVER ASKED TO SQUEEZ HANDS, PT WILL SHAKE A LITTLE BIT AND SQUEEZE HANDS. UNSURE IF IT WAS VOLENTARY OR NOT. SHE WILL HOW EVER FAN TOES WHENEVER ASKED TO WIGGLE HER TOES. RECTAL TUBE AND FC NOTED. RECTAL TUBE LEAKING. PERICARE PREFORMED ALONG WITH FC CARE. BED LINEN CHANGED AND PT REPOSITIONED FOR COMFORT. CALL LIGHT IN REACH. WILL CONT POC
--- NOTE | 2017-08-30 07:00 | NUR ---
REPORT RECEIVED FROM OFF GOING NURSE. SEE ASSESSMENT VIA FLOW SHEET. 3 CHEST TUBES NOTED TO RIGHT LATERAL CHEST WALL. WATER SEALED. DENIES PAIN AT THIS TIME. STATED THAT SHE JUST HIT HER HOUSE WORKER PUMP. VSS. BREATHING SHALLOW BUT NORMAL. CALL LIGHT IN REACH. WILL CONT POC.
--- NOTE | 2017-08-30 09:00 | NUR ---
PT REPOSITIONED FOR COMFORT. NO CHANGE IN CONDITION. CALL LIGHT IN REACH. WILL CONT POC
--- NOTE | 2017-08-30 09:54 | NUR ---
Nutrition follow-up/TPN consult: Chart reviewed. K, Mg continue to be low. PO4 has decreased also. TPN adjusted and sent to pharmacy. RDN following.
--- NOTE | 2017-08-30 11:00 | NUR ---
NO CHANGES IN PTS CONDITION. PT RECTAL TUBE LEKED AGAIN HAVING SEMI SOFT STOOL. PERICARE AND FC DONE. BED LINENS CHANGED. CALL LIGHT IN REACH. WILL CONT POC.
--- NOTE | 2017-08-30 12:40 | NUR ---
DR HERNANDEZ CHANGED VENT SETTING TO SIMV RATE 12 VOL 550 PS 10 FIO2 30% PEEP OF 5. PT TOLERATING VENT SETTINGS WELL.
--- NOTE | 2017-08-30 12:56 | NUR ---
RECTAL TUBE DC PER DR YU.
--- NOTE | 2017-08-30 14:00 | NUR ---
FAMILY AT BED SIDE. UPDATE ON PT'S CONDITION. STILL NO CHANGE FROM PREVIOUS ASSESSMENT. TOLERATING VENT SETTINGS WELL. REPOSTION FOR COMFORT. CALL LIGHT IN REACH. WILL CONT POC.
--- NOTE | 2017-08-30 16:43 | NUR ---
DR YAO REQUESTED A CVL DUE TO ABNORMAL CXR WITH PICC LINE. DR BENOIT CONSULTED AND PAGED. SHERRIE VALVERDE () CALLED AND EXPLAINED ABOUT CVL PLACEMENT AND REMOVAL OF PICC LINE. UNDERSTANDS ABOUT PROCEDURE WITH NO QUESTIONS. VERIFIED CENTRAL VENOUS CATHETER PLACEMENT WITH OKSANA MENDES.
--- NOTE | 2017-08-30 17:45 | NUR ---
DR ROBLES AT BEDSIDE. LEFT IJ PLACED. PT BLEEDING FROM IJ SITE PRESSURE APPLIED. VSS
[2017-08-30 18:34] LABS: HEMATOCRIT 22.9 % (36.0-48.0); HEMOGLOBIN 7.6 g/dL (12-16)
--- NOTE | 2017-08-30 19:05 | NUR ---
DR DIAZ PAGED RELATED TO H&H LAB RESULTS.
--- NOTE | 2017-08-30 19:15 | NUR ---
REPORT RECIEVED, SHIFT ASSESSMENT COMPLETE, PT ON VENT, AROUSES TO DEEP STIMULI, ON 30% FIO2 WITH 97% O2 SAT. CRACKLES HEARD IN B/L UPPER LOBES, DIMINISHED IN B/L LOWER LOBES, S1S2, CM-NSR, PATENT RIGHT IJ CVL..SEE IV FLOW SHEET..PATENT LEFT PICC...ABDOMEN IS SOFT AND ROUND WITH HYPO BS NOTED, PATENT F/C WITH C/Y UOP, NO EDEMA NOTED, ALL PPP, VSS, WILL CON'T TO MONITOR
--- NOTE | 2017-08-30 21:00 | NUR ---
COMPLETE BATH AND LINEN CHANGE
--- NOTE | 2017-08-30 23:25 | NUR ---
REASSESSMENT COMPLETE, NO CHANGES NOTED, PT REPOSITIONED FOR COMFORT, ORAL CARE PROVIDED
[2017-08-31] VITALS (21 sets, daily range): BP systolic 90–148; BP diastolic 54–101
--- NOTE | 2017-08-31 01:15 | NUR ---
REPOSITIONED FOR COMFORT, ORAL CARE PROVIDED,
--- NOTE | 2017-08-31 03:15 | NUR ---
REASSESSMENT COMPLETE, NO CHANGES NOTED, WILL CON'T TO MONITOR
--- NOTE | 2017-08-31 05:15 | NUR ---
REPOSITIONED FOR COMFORT, ORAL CARE PROVIDED
--- NOTE | 2017-08-31 07:00 | NUR ---
PT REPORT REC'D, PT CARE ASSUMED. PT ON VENT, OPENS EYES. LEFT JUGULAR CVL WITH FLUIDS INFUSING, SEE FLOW SHEET, DRESSING CDI. LEFT UPPER ARM PICC WITH FLUIDS INFUSING, SEE FLOW SHEET. DURON CATHETER FREE OF KINKS TO GRAVITY, WITH URINE RETURN. SHIFT ASSESSMENT COMPLETED, SEE FLOW SHEET. ROOM FREE OF CLUTTER, CALL LIGHT IN REACH, BED ALARM ACTIVE, WILL CONTINUE TO MONITOR PT.
[2017-08-31 07:39] LABS: BASOPHILS 0 % (0-2); LYMPHOCYTES 9.8 % (15-50); MCH 30.5 pg (26.0-34.0); MCHC 34.4 g/dL (31.0-37.0); MEAN PLATELET VOLUME 9.9 fL (7.4-10.4); MONOCYTES 7.4 % (2-11); NEUTROPHILS 78.8 % (40-80); PLATELET COUNT 84 10x3/uL (130-400); RDW 13.3 % (11.5-14.5); WBC 6.3 10x3/uL (4.8-10.8)
[2017-08-31 07:53] LABS: ALBUMIN 2.3 g/dL (3.4-5.0); ANION GAP 12.3 mmol/L (8-16); BILIRUBIN - TOTAL 1.79 mg/dL (0.2-1.3); CALCIUM 7.7 mg/dL (8.5-10.1); CARBON DIOXIDE 22.6 mmol/L (21.0-32.0); CREATININE - SERUM 0.9 mg/dL (0.6-1.3); POTASSIUM - SERUM 3.9 mmol/L (3.5-5.1); PROTEIN - SERUM 5.1 g/dL (6.4-8.2)
[2017-08-31 08:00] LABS: HEMATOCRIT 30.2 % (36.0-48.0); HEMOGLOBIN 10.4 g/dL (12-16); MCV 88.6 fL (80.0-100.0); RBC 3.41 10x6/uL (4.00-5.40)
[2017-08-31 08:22] LABS: MAGNESIUM - SERUM 1.8 mg/dL (1.8-2.4); PHOSPHOROUS 2.9 mg/dL (2.5-4.9)
[2017-08-31 08:25] LABS: PLATELET ESTIMATE DECREASED
--- NOTE | 2017-08-31 09:00 | NUR ---
SPOKE WITH DR. DINORAH JORDANING PTS MIRALAX ORDER, PT DOES NOT HAVE OGT OR NGT, "HOLD MIRALAX FOR NOW."
--- NOTE | 2017-08-31 09:15 | NUR ---
PT FAMILY AT THE BEDSIDE, ALL QUESTIONS ANSWERED, VSS, WILL CONTINUE TO MONITOR PT.
--- NOTE | 2017-08-31 11:00 | NUR ---
REPOSTIONED PT, PROPPED WITH PILLOWS, VSS, REASSESSMENT COMPLETED, SEE FLOW SHEET. ROOM FREE OF CLUTTER, CALL LIGHT IN REACH, BED ALARM ACTIVE, WILL CONTINUE TO MONITOR PT.
--- NOTE | 2017-08-31 11:17 | NUR ---
DR. YAO AT THE BEDSIDE
--- NOTE | 2017-08-31 13:00 | NUR ---
COMPLETE BED BATH AND LINEN CHANGE
--- NOTE | 2017-08-31 14:03 | NUR ---
GERMAN GONZALEZ RN AT THE BEDSIDE D/C'ING LEFT UPPER ARM PICC. WILL HANG NEW TPN AND CONNECT TO LEFT JUGULAR CVL.
--- NOTE | 2017-08-31 15:00 | NUR ---
REPOSITIONED PT, PROPPED WITH PILLOWS, REASSESSMENT COMPLETED, SEE FLOW SHEET. ROOM FREE OF CLUTTER, CALL LIGHT IN REACH, BED ALARM ACTIVE, WILL CONTINUE TO MONITOR PT.
--- NOTE | 2017-08-31 17:52 | NUR ---
PT FAMILY AT THE BEDSIDE, ALL QUESTIONS ANSWERED, VSS, WILL CONTINUE TO MONITOR PT.
--- NOTE | 2017-08-31 19:30 | NUR ---
ASSESSMENT COMPLETE. S1S2. SEDATED ON VENT. PUPILS 6MM; BRISK. KYPHOSIS NOTED TO BACK/SPINE. RR CRACKLES BILATERALLY IN UPPER AND MID LOBES; DIMINISHED BILATERALLY IN LOWER LOBES. RADIAL AND PEDAL PULSES PALPATED. DOES NOT FOLLOW COMMANDS. OPENS EYES SPONTANEOUSLY. BRUISING NOTED TO CHEST AND LOWER NECK.
--- NOTE | 2017-08-31 21:45 | NUR ---
NO VISITORS OR FAMILY DURING VISITATION.
--- NOTE | 2017-08-31 23:15 | NUR ---
REASSESSMENT COMPLETE. NO ACUTE CHANGES FROM PREVIOUS ASSESSMENT. SEE FLOW SHEET FOR DETAILS.
--- NOTE | 2017-08-31 23:15 | NUR ---
REASSESSMENT COMPLETE. PT INCREASED IN MOANING; PT DRANK 200ML WATER. WILL NOT COMMUNICATE NEEDS OR SENTENCES; MOANS ONLY.
[2017-09-01] VITALS (24 sets, daily range): BP systolic 81–143; BP diastolic 65–99
--- NOTE | 2017-09-01 01:30 | NUR ---
PT RESTING; EYES CLOSED. VSS. NO DISTRESS NOTED. WILL CONTINUE TO MONITOR.
--- NOTE | 2017-09-01 03:05 | NUR ---
REASSESSMENT COMPLETE. NO ACUTE CHANGES FROM PREVIOUS ASSESSMENT. VSS. NO DISTRESS NOTED. WILL CONTINUE TO MONITOR.
[2017-09-01 05:00] LABS: BASOPHILS 0.1 % (0-2); EOSINOPHILS 4.4 % (0-7); HEMATOCRIT 29.5 % (36.0-48.0); HEMOGLOBIN 10.4 g/dL (12-16); IMMATURE GRANULOCYTES 1.3 % (0-5); LYMPHOCYTES 7.8 % (15-50); MCH 30.6 pg (26.0-34.0); MCHC 35.3 g/dL (31.0-37.0); MCV 86.8 fL (80.0-100.0); MEAN PLATELET VOLUME 9.8 fL (7.4-10.4); MONOCYTES 7.7 % (2-11); NEUTROPHILS 78.7 % (40-80); RDW 13.9 % (11.5-14.5)
[2017-09-01 05:07] LABS: PLATELET COUNT 107 10x3/uL (130-400); WBC 7.9 10x3/uL (4.8-10.8)
[2017-09-01 05:16] LABS: ALBUMIN 2.2 g/dL (3.4-5.0); ALKALINE PHOSPHATASE 47 U/L (46-116); CALCIUM 7.7 mg/dL (8.5-10.1); CARBON DIOXIDE 22.2 mmol/L (21.0-32.0); CHLORIDE - SERUM 111 mmol/L (98-107); CREATININE - SERUM 0.7 mg/dL (0.6-1.3); MAGNESIUM - SERUM 1.7 mg/dL (1.8-2.4); SODIUM 143 mmol/L (136-145); UREA NITROGEN 27 mg/dL (7-18); eGFR NON AFRICAN AMERICAN 90 mL/min (90-120)
[2017-09-01 05:30] LABS: ALT (SGPT) 371 U/L (10-68); CALC OSMOLALITY 290 mosm/kg (275-300); GLUCOSE 124 mg/dL (74-106); POTASSIUM - SERUM 3.2 mmol/L (3.5-5.1)
--- NOTE | 2017-09-01 08:23 | NUR ---
PT INTUBATED AND ON VENT, SIMV 12, RESP 34, EYES OPEN, DOES NOT FOLLOW COMMAND, DIPROVAN OFF. SPO2 96%. DR VIZCARRA HERE,
[2017-09-01 09:57] LABS: VANCOMYCIN - TROUGH 18.7 ug/mL (10.0-20.0)
[2017-09-01 09:59] LABS: PHOSPHOROUS 2.1 mg/dL (2.5-4.9)
--- NOTE | 2017-09-01 10:15 | NUR ---
SPOKE TO PT'S RIVKA AT BS, DR YAO ALSO SPOKE TO PT'S FA AT BS. PT'S FATHER STATES THAT HE KNOWS HER WISHES. HE STATES THAT SHE WOULD NOT WANT THIS CONTINUED LIFE SUPPORT. CALLED PT'S SHERRIE AND SPOKE TO HIM ABOUT CODE STATUS HE IS DECISION MAKER. HE SPOKE TO THIS RN AND CANDI QUIROS. SHERRIE VALVERDE PT'S STATES THAT SHE SHOULD BE A DNR. HE VERBILIZES FULL UNDERSTANDING RE: CODE STATUS AND DNR STATUS. REPORTED TO DR YAO RE: CONVERSAION [facility] PT'S .
--- NOTE | 2017-09-01 10:20 | NUR ---
Nutrition follow-up: Pt remains intubated, sedated now with propofol. Labs reviewed. New TPN orders sent to pharmacy due to low K, PO4, Mg; also discontinued lipids due to pt now on propofol. TPN: D25W,4.25%AA @ 40 ml/hr. RDN following.
--- NOTE | 2017-09-01 14:27 | NUR ---
Patient Name: SWAPNIL NEGRETE Admission Status: Urgent Accout number: [id number] Admission Date: 08-30-2017 : 02-28-1935 Admission Diagnosis:ABSCESS OF LUNG WITHOUT PNEUMONIA Attending: RODGER VILLAR Current LOS: 2 Planned Disposition: Home with Home Health Primary Insurance: MEDICARE A & B Discharge Planning Comments: CM met with patient & spouse at bedside to access dc plans/needs. Patient states he lives at home with his , Dorina. He reports he was independent with all ADL's & IADL's prior to his hospitalization in [place] for Esophagectomy about 3 weeks ago. Since that discharge, he has been using a cane for ambulating and required some assistance with bathing. He reports he is currently receiving home health services with [facility] and wants to resume their services at discharge. CM will follow & assist as needed. Welding Machine Operator Thermit: Marybeth Stevenson
--- NOTE | 2017-09-01 15:07 | NUR ---
spoke to pt's and daugher at [facility] and with dr sutton as well. pt's and daugher explane that her wishes are to take the vent off. explaned procedure of terminal extubation to both and daughter. both verb understanding of terminal extubation. pt's wants to wait until tomorrow for other family.
--- NOTE | 2017-09-01 19:40 | NUR ---
REC'D PT ON VENT VIA 7.5 ETT TAPED @ 21CM LIPLINE, SEE FLOWSHEET FOR VENT SETTINGS, PT ON LEFT SIDE, KYPHOSIS NOTED TO SPINE, OPENS EYES TO TACTILE STIMULI BUT DOES NOT RESPOND TO VERBAL COMMANDS, LIJTL DRSG INTACT SEE FLOWSHEET FOR GTTS, BRUISE NOTED TO RIGHT HAND AND UPPER CHEST AND THROAT, DURON PATENT DRAINING CONCENTRATED URINE, BILAT SCD'S ON, ALL BONY PROMINENCES SUPPORTED WITH PILLOWS, BILAT SOFT WRIST RESTRAINTS INTACT, SR UP X 2, BED IN LOW POSITION.
--- NOTE | 2017-09-01 21:30 | NUR ---
PT REPOSITIONED UPIN BED FOR COMFORT, ORAL CARE PROVIDED, COPIOUS AMOUNTS CLEAR SECRETIONS FROM MOUTH, VSS.
--- NOTE | 2017-09-01 23:30 | NUR ---
REASSESSMENT COMPLETED, FSBS 110, PT REPOSITIONED ONTO RIGHT SIDE SUPPORTED WITH PILLOWS, VSS, WILL CONT TO MONITOR FOR CHANGES.
[2017-09-02] VITALS (15 sets, daily range): BP systolic 82–122; BP diastolic 62–93
--- NOTE | 2017-09-02 02:00 | NUR ---
NO CHANGES IN STATUS
--- NOTE | 2017-09-02 03:00 | NUR ---
REASSSESSMENT COMPELTED, NO CHANGES FROM PREVIOUS ASSESSMENT, VSS, WILL CONT TO MONITOR FOR CHANGES.
--- NOTE | 2017-09-02 03:30 | NUR ---
PT INCONTINENT OF LOOSE BROWN STOOL, COMPLETE BATH AND LINEN CHANGE GIVEN, PT REPOSITIONED UP IN BED AND ONTO BACK, RESP RATE 30-40 DIPRIVAN INCREASED TO 30MCG/KG/MIN, BP STABLE
[2017-09-02 05:42] LABS: BASOPHILS 0.1 % (0-2); EOSINOPHILS 3.3 % (0-7); HEMATOCRIT 28.8 % (36.0-48.0); HEMOGLOBIN 10.2 g/dL (12-16); IMMATURE GRANULOCYTES 0.8 % (0-5); LYMPHOCYTES 6.9 % (15-50); MCH 30.9 pg (26.0-34.0); MCHC 35.4 g/dL (31.0-37.0); MCV 87.3 fL (80.0-100.0); MEAN PLATELET VOLUME 9.7 fL (7.4-10.4); MONOCYTES 7.9 % (2-11); WBC 8.4 10x3/uL (4.8-10.8)
[2017-09-02 05:43] LABS: PLATELET COUNT 156 10x3/uL (130-400)
[2017-09-02 06:01] LABS: ALBUMIN 2.4 g/dL (3.4-5.0); ALKALINE PHOSPHATASE 67 U/L (46-116); ALT (SGPT) 294 U/L (10-68); BILIRUBIN - TOTAL 0.78 mg/dL (0.2-1.3); CALC OSMOLALITY 292 mosm/kg (275-300); CALCIUM 7.9 mg/dL (8.5-10.1); CARBON DIOXIDE 22.9 mmol/L (21.0-32.0); CHLORIDE - SERUM 113 mmol/L (98-107); CREATININE - SERUM 0.8 mg/dL (0.6-1.3); GLUCOSE 125 mg/dL (74-106); MAGNESIUM - SERUM 2.5 mg/dL (1.8-2.4); POTASSIUM - SERUM 3.8 mmol/L (3.5-5.1); PROTEIN - SERUM 5.6 g/dL (6.4-8.2); SODIUM 145 mmol/L (136-145); UREA NITROGEN 21 mg/dL (7-18); eGFR NON AFRICAN AMERICAN 77 mL/min (90-120)
--- NOTE | 2017-09-02 07:00 | NUR ---
REC'D REPORT AND RESUMED CARE, ETT TO VENTILATION AND SECURED, IN SIMV MODE WITH 30 % FIO2, LEFT IJ WITH TPN @ 40 CC/HR, PROPOFAL AT 9 CC/HR, 30 MCG, DURON TO GRAVITY WITH CONCENTRATED YELLOW DRAINAGE TO BAG, SCD'S AND SOFT WRIST RESTRAINTS B/L, ASSESSMENT COMPLETE PER FLOWSHEET, REPOSITIONED TO LEFT SIDE WITH LPILLOW PROPPED TO BACK, CONTRACTED WITH CURVATURE TO UPPER BACK, ORAL CARE AND SUCION COMPLETED
--- NOTE | 2017-09-02 09:30 | NUR ---
AM MEDS GIVEN WITHOUT DIFFICULTY, PO MEDS HELD, NO NGT OR OGT PRESENT
--- NOTE | 2017-09-02 10:04 | OP ---
PATIENT NAME: MILI VALVERDE MEDICAL RECORD: [id number] :55 LOCATION:D.[facility] [id number] ADMISSION DATE:08/25/17 SURGEON: TAMMIE ROBLES MD DATE OF OPERATION: 08/30/2017 PREOPERATIVE DIAGNOSES: 1. Ventilatory failure requiring mechanical ventilation. 2. Status post cardiopulmonary arrest. 3. Anuria. 4. Vomiting. POSTOPERATIVE DIAGNOSES: 1. Ventilatory failure requiring mechanical ventilation. 2. Status post cardiopulmonary arrest. 3. Anuria. 4. Vomiting. PROCEDURE: Placement of left neck central venous catheter. MUSICAL PERFORMER: None. BLOOD LOSS: Minimal. ANESTHESIA: Local. COMPLICATIONS: None. INDICATION: The patient is status post cardiopulmonary arrest. There have been attempts to place a PICC catheter and one of the PICC catheters curled up in the patient's mediastinum likely in the brachiocephalic vein. OPERATIVE COURSE: A consent form was signed. The left neck was sterilely prepped and draped. A local anesthetic was used to infiltrate the skin and subcutaneous tissues at the base of the right neck. The patient had a large right external jugular vein. I percutaneously accessed the jugular vein and advanced Angiocath. Through the Angiocath, I advanced a guidewire. It advanced a short distance down the external jugular vein. I dilated with a vascular dilator. A 16-cm central lumen catheter advanced down into the subclavian vein, but I could not get it to advance any further. I removed the wire. I changed out for an 0.035 Glidewire. I advanced the Glidewire. I could see ectopy on the monitor indicating that the Glidewire was likely in the right side of the heart. I then advanced the catheter over the Glidewire. The Glidewire was then removed. I was able to flush the catheter easily. The central venous catheter was sewn in place with silk sutures times 4. A sterile dressing was applied. A chest x-ray revealed that the catheter is likely well place, although the chest x-ray images were challenging to read. TRANSINT:[id number] Voice Confirmation ID: [id number] DOCUMENT ID: [id number] OPERATIVE REPORT [id number] KATIEMILI CULVER TAMMIE OCONNELL MD at 1004 CC: EMMA COPELAND MD [id number] DICTATION DATE: 08/31/17 1159 WORK ORDER DETAILER: 08/31/17 1313 ADM IN [place] [id number] [place] [id number]
--- NOTE | 2017-09-02 11:48 | NUR ---
PC FROM FAMILY READY TO COME IN FOR PLANNED EXTUBATION TODAY
--- NOTE | 2017-09-02 12:35 | NUR ---
MORPHINE 10MG IVP GIVEN PRE EXTUBAION, PER ORDER
--- NOTE | 2017-09-02 13:15 | NUR ---
EXTUBATED BY RT, 2L NC INITIATED, ORAL CARE AND SUCTION COMPLETED,
--- NOTE | 2017-09-02 13:48 | NUR ---
CALLED TO ROOM, RESP 32, BP 69/32, 2 MG BOLUS MORPHINE GIVEN PER CATERING COORDINATOR ORDER, FAMILY AT BEDSIDE,
--- NOTE | 2017-09-02 15:54 | NUR ---
SLEEPING, VSS, FAMILY AT BEDSIDE, NO NEEDS AT THIS TIME
--- NOTE | 2017-09-02 16:17 | NUR ---
AIR HUNGER, RESP 32, 2 MG BOLUS MORPHINE GIVEN
--- NOTE | 2017-09-02 18:10 | NUR ---
MORPHINE 2 MG BOLUS GIVEN FOR AIR HUNGER, TRANSFERRED T0 2200 VIA BED WITH PERSONNEL X2, PRIMARY NURSE SARAH AT BEDSIDE, FAMILY NOTIFIED OF ROOM #, SPOUSE, SON AND DAUGHTER IN LAW, NO OTHER NEEDS AT THIS TIME, THEY ARE AWARE THAT HOSPICE EVALL WILL BE COMPLETED IN THIS ROOM AND THAT DR PUCKETT WILL COME TO EVAL PATIENT WELL
--- NOTE | 2017-09-02 18:19 | NUR ---
RECIEVED PT TO FLOOR FROM ICU. PT AWAITING HOSPICE CONSULT. BED IN LOW POSITION AND CALL LIGHT WITHIN REACH. WILL CONTINUE TO MONITOR.
--- NOTE | 2017-09-02 19:37 | NUR ---
PATIENT RECIEVED..HAVING SEIZURE LIKE ACTIVITY. ATIVAN GIVEN PER ORDERS. ACTIVITY SUBSIDED. RESP SHALLOW. HOSPICE HERE. UNABLE TO CONTACT FOR CONSENTS. LEFT IJ INTACT WITH NS INFUSING AT 10 CC/HR. BRUISING NOTED TO NECK AREA. WILL OBSERVE.
--- NOTE | 2017-09-02 22:03 | NUR ---
HOSPICE HERE MEETING WITH
--- NOTE | 2017-09-02 23:16 | NUR ---
PATIENT ADMITTED TO HOSPICE SERVICE. DR DOUGLAS NOTIFIED
--- NOTE | 2017-09-03 07:00 | NUR ---
REPORT RECIEVED ASSUMED CARE. PATIENT IN BED WITH EYES CLOSED RESTING. FAMILY AT BEDSIDE. IV INTACT. CALL LIGHT WITHIN REACH.
--- NOTE | 2017-09-03 08:00 | NUR ---
PATIENT AGITATED AT THIS TIME AND RESTLESS. MORPHINE BOLUS AND VALIUM GIVEN TO PATIENT. IV INTACT. CALL LIGHT WITHIN REACH. ORAL CARE COMPLETED AND MOUTH MOISTURIZOR PLACED ON LIPS. FAMILY AT BEDSIDE.
--- NOTE | 2017-09-03 09:45 | NUR ---
PATIENT IN BED RESTING QUIETLY. IV INTACT. FAMILY AT BEDSIDE. CALL LIGHT WITHIN REACH.
--- NOTE | 2017-09-03 12:50 | NUR ---
PATIENT TURNED AND PILLOW PLACED UNDER ANKLES. ORAL CARE COMPLETE AGAIN. CVL DRESSING CHANGED. FAMILY AT BEDSIDE. CALL LIGHT WITHIN REACH.
--- NOTE | 2017-09-03 16:55 | NUR ---
PATIENT RESTLESS AND AGITATED AGAIN. MORPHINE BOLUS 1 MG GIVEN AND VALIUM IVP GIVEN WELL. IV INTACT. FAMILY AT BEDSIDE. CALL LIGHT WITHIN REACH.
--- NOTE | 2017-09-03 17:30 | NUR ---
PATIENT IN BED WITH NO RESPIRATIONS OR PULSE. HOSPICE NURSE, RN, AND PATIENT FAMILY AT BEDSIDE. NO HR ASCULTATED. HOSPICE NURSE NOTIFIED DR. PUCKETT.
--- NOTE | 2017-09-03 17:57 | NUR ---
ER PHYSICIAN PRONOUNCED PATIENT AT THIS TIME.
--- NOTE | 2017-09-03 18:00 | NUR ---
RECORD OF FILLED OUT PER POLICY. HOME, [place], AND MEDICAL PHYSICS PROFESSOR CALLED. NOTIFIED HS. INFORMED BY MEDICAL PHYSICS PROFESSOR TO LEAVE CVL IN PLACE. PATIENT CLEANED AND DURON REMOVED. AWAITING HOME AT THIS TIME.
== END 2017-09-03 00:03 | disposition hospice, inpatient (51) | DRG 689 ==
LOC: D.ICU 15:40 → D.SDCHOLD 15:40 → D.MS 15:40 → D.ICU 08-27 07:43 → D.MS 09-02 18:14
PROVIDERS: Family Medicine; Internal Medicine Gastroenterology; Internal Medicine Pulmonary Disease; ADMIT Family Medicine
PROC: 0T9B70Z Drainage of Bladder with Drainage Device, Via Natural or Artificial Opening (ICD-10-PCS; 2017-08-25)
PROC: 5A12012 Performance of Cardiac Output, Single, Manual (ICD-10-PCS; principal; 2017-08-27)
PROC: 0BH17EZ Insertion of Endotracheal Airway into Trachea, Via Natural or Artificial Opening (ICD-10-PCS; 2017-08-27)
PROC: 5A1955Z Respiratory Ventilation, Greater than 96 Consecutive Hours (ICD-10-PCS; 2017-08-27)
PROC: 05HC33Z Insertion of Infusion Device into Left Basilic Vein, Percutaneous Approach (ICD-10-PCS; 2017-08-29)
PROC: B54NZZA Ultrasonography of Left Upper Extremity Veins, Guidance (ICD-10-PCS; 2017-08-29)
PROC: 02HV33Z Insertion of Infusion Device into Superior Vena Cava, Percutaneous Approach (ICD-10-PCS; 2017-08-30)
DX: N39.0 Urinary tract infection, site not specified (principal); E43 Unspecified severe protein-calorie malnutrition; G93.40 Encephalopathy, unspecified; J96.00 Acute respiratory failure, unspecified whether with hypoxia or hypercapnia; J69.0 Pneumonitis due to inhalation of food and vomit; I46.9 Cardiac arrest, cause unspecified; K92.2 Gastrointestinal hemorrhage, unspecified; J98.11 Atelectasis; E87.0 Hyperosmolality and hypernatremia; D62 Acute posthemorrhagic anemia; E87.3 Alkalosis; R33.9 Retention of urine, unspecified; K21.9 Gastro-esophageal reflux disease without esophagitis; F41.8 Other specified anxiety disorders; K44.9 Diaphragmatic hernia without obstruction or gangrene; M41.9 Scoliosis, unspecified; R74.8 Abnormal levels of other serum enzymes; J98.4 Other disorders of lung; I95.9 Hypotension, unspecified; E86.0 Dehydration; E87.6 Hypokalemia; E03.9 Hypothyroidism, unspecified; T68.XXXA Hypothermia, initial encounter; E83.42 Hypomagnesemia

== ENCOUNTER 2017-09-03 00:48 | Inpatient (IN) | payer OTHER ==
[~2017-09-03] VITALS: Ht 152.4 cm; Wt 45.5 kg
--- NOTE | 2017-09-03 00:10 | NUR ---
ADMITTED TO [facility]. VS 127/86 P103 SPO2 @ 84 %. RESP SHALLOW @ 16 IV INFUSING TO LEFT IJ @ KVO. OPTOMECHANICAL ENGINEER MORPHINE IN USE FOR PAIN CONTROL. DOMI PATENT. FAMILY AT BEDSIDE.
[~2017-09-03 00:48] MED LIST changes: +PHENERGAN12.5 MG RC
[2017-09-03 01:33] VITALS: BP 127/86; Ht 152.4 cm; Wt 45.5 kg
--- NOTE | 2017-09-03 04:52 | NUR ---
RESP REMAIN SHALLOW AT 16. NO CHANGE NOTED. FAMILY REMAINS AT BEDSIDE.
[2017-09-03 08:33] VITALS: BP 135/72
--- NOTE | 2017-09-06 11:41 | NUR ---
Per CMS protocol, restraint report logged into data base.
== END 2017-09-03 17:37 | DRG 951 ==
LOC: D.MS 00:48
PROVIDERS: ADMIT Legal Medicine
DX: Z51.5 Encounter for palliative care (principal); Z66 Do not resuscitate